=== PATIENT | male | born 1975 | race Caucasian/White ===

== ENCOUNTER 2018-05-12 13:32 | Emergency (ER) | payer BC, SELFPAY ==
[2018-05-12 13:33] VITALS: BP 165/106; PULSE 108; RESP 16; TEMP 36.6; O2SAT 95; BMI 22.2
--- NOTE | 2018-05-12 13:45 | ED.RN ---
PT REQUESTING TO LEAVE. I AM OK I CANT AFFORD THIS I AM ABOUT TO LOSE MY HOUSE PATIENT INFORMED OF THE SERIOUSNESS OF HIS VISIT. ENCOURAGED PATIENT TO STAY AND BE EVALUATED BY A PHYSICIAN. PT STILL REQUESTING TO LEAVE. EXPLAINED TO PATIENT THAT THE HOSPITAL HAS PAYMENT PROGRAMS. PT SIGNED AMA FORM. PT INFORMED THAT HE COULD POTENTIAL IF NOT EVALUATED BY A PHYSICIAN. PT LEFT WITHOUT BEING SEEN.
== END 2018-05-12 13:44 ==
LOC: ED 13:45
PROVIDERS: Emergency Provider Emergency Medicine; Family Provider Family Medicine; PCP Family Medicine
DX: R55 Syncope and collapse (principal)

== ENCOUNTER → 2018-09-22 06:55 | Outpatient (CLI) | payer MEDICAID, SELFPAY ==
--- NOTE | 2018-09-22 10:34 | NEURO_ITS ---
NCS and/or EMG Patient Report Ordering Doctor: Luci Daly DATE OF SERVICE: 09/22/18 Is a left upper extremity nerve conduction study performed on this 43-year-old male who in 2013 suffered a laceration in his lateral left arm but recovered. Over the past year he has experienced left elbow pain when grasping progressiv joby worse over the past 6 months. He denies paresthesias in his hands or fingers. Left upper extremity sensory and motor nerve conduction studies performed. There is mild prolongation of the median motor and sensory distal latencies with preservation of amplitude and conduction velocities. The ulnar motor and sensory and radial sensory responses are normal. The median and ulnar F-wave latencies are normal. 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 There is no evidence of ulnar or radial neuropathy. EMG testing was deferred.
== END ==
DX: M79.602 Pain in left arm (principal)
CPT/HCPCS: 95910

== ENCOUNTER → 2019-02-02 08:28 | Outpatient (CLI) | payer MEDICAID, SELFPAY ==
[2019-02-02 08:22] VITALS: BMI 22.2
--- NOTE | 2019-02-02 08:30 | RAD_ITS ---
STUDY: X-RAY - LEFT RADIUS AND ULNA REASON FOR EXAM: Arm pain without injury. TECHNIQUE: 2 view(s) of the forearm. COMPARISON: Radiographs of the left wrist 02/18/2014. FINDINGS: There is a very small calcification or residual foreign body at the dorsal radial aspect of the distal ulnar diaphysis. Normal visualized radius. Normal visualized ulna. RAD/Forearm 2 Views IMPRESSION: Very small calcification or residual foreign body at the dorsal radial aspect of the distal ulnar diaphysis. Electronically Signed: Trung Van MD at 14:27 EDT Tel , Service support ,
== END ==
PROVIDERS: Referring Provider Orthopaedic Surgery; Visit Provider Orthopaedic Surgery
DX: M79.602 Pain in left arm (principal)
CPT/HCPCS: 73090

== ENCOUNTER 2021-06-20 12:46 | Emergency (ER) | payer MEDICAID, SELFPAY ==
[2021-06-20] VITALS (12 sets, daily range): BP systolic 135–166; BP diastolic 84–101; PULSE 88–90; RESP 12–17; TEMP 35.3; O2SAT 98–99; BMI 23.7
--- NOTE | 2021-06-20 13:02 | CT_ITS ---
STUDY: CTA NECK WITH CONTRAST REASON FOR EXAM: Male, 45 years old. Attempted hanging RADIATION DOSAGE (If Supplied By Facility): CTDIvol = ( 21.37 ) mGy, DLP = ( 628.88 ) mGycm TECHNIQUE: CT angiography with multi-detector data acquisition was performed from the aortic arch to the skull base following intravenous administration of IV 100mL Isovue-370. MIP images were reconstructed from the axial data set. Post-processing of the angiographic images was performed, with multiplanar reformation and 3D reconstruction. Individualized dose optimization techniques were used for this CT. COMPARISON: None. FINDINGS: AORTIC ARCH: Normal visualized aortic arch. Normal origins of the brachiocephalic, left common carotid, and left subclavian arteries. RIGHT CAROTID ARTERIES: Normal right common carotid artery (CCA). Normal right common carotid bulb. There is mild atherosclerotic plaque formation of the origin of the right internal carotid artery with less than 50% cross sectional diameter stenosis. Normal visualized cervical portion of the right internal carotid artery. Normal origin of the right external carotid artery (ECA). LEFT CAROTID ARTERIES: Normal left common carotid artery (CCA). Normal left common carotid bulb. There is mild atherosclerotic plaque formation of the origin of the left internal carotid artery with less than 50% cross sectional diameter stenosis. Normal visualized cervical portion of the left internal carotid artery. Normal origin of the left external carotid artery (ECA). VERTEBRAL ARTERIES: Normal bilateral vertebral arteries. CT/CTA Neck W/WO Contrast IMPRESSION: No significant abnormality is seen. Electronically Signed: Rajinder Spencer MD at 15:46 EST , Service support ,
--- NOTE | 2021-06-20 13:03 | EDS_ITS ---
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 Police received call from ex-girlfriend stating the patient was threatening suicide therefore they went to the patient's residence and found him hanging from a tree. Patient states that he was using a lasso. Patient had to be cut down from the tree. Patient admits to drinking alcohol today and states he was drinking vodka. He is not had prior attempts at self-harm. Patient has history of anxiety and hypertension. Denies any illicit drug use. Prior similar symptoms: No PFSH PFSH Medical History (Updated 06/20/21 @ 12:48 by Ning Hilario) Anxiety Hypertension Home Medications nitroglycerin 0.3 mg/hr transdermal 24 hour patch See Rx Instructions TOPICAL .COMPLEX #30 patch 02/08/19 [Rx Last Taken Unknown] buspirone 10 mg PO DAILY 06/20/21 [History Last Taken Unknown] losartan 100 mg PO DAILY 06/20/21 [History Last Taken Unknown] Allergy/AdvReac Type Severity Reaction Status Date / Time No Known Allergies Allergy Verified 06/20/21 12:47 Social History (Updated 02/02/19 @ 10:[address] Arlen Lima, DO) Smoking Status: Current every day smoker tobacco type: cigarettes ROS ROS ED Constitutional Constitutional ED: Reports systems reviewed and no addt'l complaints, except as documented; Denies body ache(s), change in weight or chills Eyes Eyes: Denies acute decrease in peripheral vision, change in vision, double vision or loss of vision ENT ENT ED: Reports none; Denies ear pain, lip swelling, loss taste/smell, neck pain, otalgia or sore throat Cardiovascular Cardiovascular: Reports none; Denies abdominal pain, chest pain with activity, leg edema, lightheadedness, palpitations, rapid heart rate or syncope Respiratory/Chest Respiratory/Chest: Reports none; Denies change in mental status, dry cough, dyspnea, hemoptysis, shortness of breath at rest or shortness of breath with ex ertion Gastrointestinal Gastrointestinal: Reports none; Denies abdominal pain, change in stool characte r, diarrhea, hematemesis, hematochezia, melena, rectal bleeding or vomiting Genitourinary Genitourinary ED: Reports none; Denies abdominal discomfort, anuria, dysuria, genital pain or polyuria Musculoskeletal Musculoskeletal: Reports none; Denies arthralgias, back pain, difficulty walking, extremity pain, muscle weakness or myalgias Integumentary Reports none; Denies abscess or rash Neurologic Neurologic: Reports none; Denies abnormal gait, confusion, focal weakness, frequent falls, headache(s), loss of vision, numbness, paresthesias, radicular pain, vertigo or weakness Psychiatric Psychiatric: Reports systems reviewed and no addt'l complaints, except as documented, none, suicidal ideation and suicidal thoughts; Denies behavioral changes, confusion, difficulty concentrating, hallucinations, tactile hallucinations or visual hallucinations Endocrine Endocrinology: Denies none, cold intolerance, excessive sweating, fatigue or heat intolerance Hematologic/Lymphatic Hematologic/Lymphatic: Reports none; Denies anemia, easy bleeding or easy bruising Allergic/Immunologic Allergic/Immunologic ED: Denies as per HPI, none, lip swelling, mouth swelling, throat swelling, tongue swelling or hives EXAM Physical Exam Const Vital Signs: 06/20/21 12:50 06/20/21 14:03 06/20/21 15:13 Temperature 95.6 F L Temperature Source Oral Pulse Rate 90 Respiratory Rate 16 16 16 Blood Pressure 166/101 H Blood Pressure Mean 122 Pulse Ox 98 Oxygen Delivery Method Room Air 06/20/21 16:01 06/20/21 16:33 Temperature Temperature Source Pulse Rate 90 Respiratory Rate 16 12 Blood Pressure 140/89 H Blood Pressure Mean 106 Pulse Ox 99 Oxygen Delivery Method Room Air Positive well nourished and well developed General Appearance ED: well developed and NAD HEENT Reports TM's clear and moist mucous membranes HEENT Narrative: No tenderness over the larynx on exam. No ligature jo noted on exam. He does have an area of linear firmness and induration to the left side of the neck that is essentially nontender. No voice hoarseness noted. normocephalic and atraumatic; Negative for trauma or tenderness Tympanic Membrane ED: Yes TM's clear Eyes PERRL and EOMs intact bilaterally General Eye ED: Negative for pale conjunctiva or scleral icterus Neck no lymphadenopathy, supple and no JVD General: Negative for tenderness Chest Wall inspection of chest normal and palpation of chest normal Chest: Negative for tenderness Resp normal respiratory effort and clear to auscultation bilaterally Effort and Inspection: Negative for respiratory distress or pain with movement Auscultation: Negative for rhonchi, wheezes or diminished lung sounds Cardio regular rate, regular rhythm, S1 normal heart sound, S2 normal heart sound and no murmurs Peripheral Pulses: pulses 2+ throughout GI normal to inspection, nondistended, normoactive bowel sounds, soft to palpation, non-tender, non-distended and no masses Back/Spine no CVA tenderness and no thoracic nor lumbar tenderness Extremity normal to inspection General Extremety ED: Negative for edema General Extremity: Negative for edema Neuro oriented x3, CN's II-XII intact bilaterally, no sensory deficits noted and gait normal Sensorium / Orientation: awake, alert, oriented to person, oriented to place and oriented to time Motor Exam: strength 5/5 throughout and strength abnormal Psych mental status grossly normal Skin no rashes or lesions noted and no wounds MDM MDM MDM Narrative Medical decision making narrative: IV line established on arrival. Patient was uncooperative and wanted to leave the department while clearly intoxicated. Patient was medicated with Ativan as well as Haldol so that we could obtain the proper imaging and care for the patient. CTA of the neck was obtained which was essentially unremarkable. Patient's COVID-19 test came back positive however he is a poor historian and had denied any illness recently. A PCR was sent. Alcohol level was quite elevated at 342 and he will need to be evaluated by crisis once his alcohol normalizes. Care of patient turned over to evening physician awaiting evaluation by crisis and he will require transfer to psychiatric facility for further stabilization of his suicidal ideation. Lab Data Attestation: I reviewed the patient's lab results. Labs: Laboratory Results - last 24 hr 06/20/21 06/20/21 06/20/21 13:02 13:02 13:02 WBC 7.2 RBC 5.09 Hgb 16.0 Hct 45.9 MCV 90.2 MCH 31.4 MCHC 34.9 RDW Std Deviation 39.0 RDW Coeff of Niesha 11.9 Plt Count 201 MPV 9.3 Immature Gran % (Auto) 0.100 Neut % (Auto) 48.1 Lymph % (Auto) 35.3 [place] % (Auto) 14.4 H Eos % (Auto) 1.0 Baso % (Auto) 1.1 H Absolute Neuts (auto) 3.5 Absolute Lymphs (auto) 2.54 Nucleated RBC % 0 Sodium 138 Potassium 3.3 L Chloride 105 Carbon Dioxide 23.0 Anion Gap 10 BUN 10 Creatinine 1.00 Estim Creat Clear Calc 103.20 Est GFR (MDRD) Af Amer 103 Est GFR (MDRD) Non-Af 85 BUN/Creatinine Ratio 10.1 Glucose 107 H Calcium 9.4 Urine Opiates Screen Urine Methadone Screen Ur Barbiturates Screen Ur Phencyclidine Scrn Ur Amphetamines Screen U Methamphetamin-MDMA U Benzodiazepines Scrn Urine Cocaine Screen U Cannabinoids Screen Ur Drug Screen Comment Ethyl Alcohol 342.0 H* 06/20/21 14:19 WBC RBC Hgb Hct MCV MCH MCHC RDW Std Deviation RDW Coeff of Niesha Plt Count MPV Immature Gran % (Auto) Neut % (Auto) Lymph % (Auto) [place] % (Auto) Eos % (Auto) Baso % (Auto) Absolute Neuts (auto) Absolute Lymphs (auto) Nucleated RBC % Sodium Potassium Chloride Carbon Dioxide Anion Gap BUN Creatinine Estim Creat Clear Calc Est GFR (MDRD) Af Amer Est GFR (MDRD) Non-Af BUN/Creatinine Ratio Glucose Calcium Urine Opiates Screen NEGATIVE Urine Methadone Screen NEGATIVE Ur Barbiturates Screen NEGATIVE Ur Phencyclidine Scrn NEGATIVE Ur Amphetamines Screen NEGATIVE U Methamphetamin-MDMA NEGATIVE U Benzodiazepines Scrn NEGATIVE Urine Cocaine Screen NEGATIVE U Cannabinoids Screen NEGATIVE Ur Drug Screen Comment Ethyl Alcohol Radiography Diagnostic Testing: Clinical Impression(s) from Imaging Studies Neck CTA 06/20/21 13:02 IMPRESSION: No significant abnormality is seen. Electronically Signed: Rajinder Spencer MD at 15:46 EST , Service support , Discharge Plan Triage Chief Complaint: Suicidal ED Provider: Khadra Sanz Dx/Rx/DC Orders Prescriptions: No Action buspirone 10 mg tablet 10 mg PO DAILY RF: 0 losartan 100 mg tablet 100 mg PO DAILY RF: 0 Nitro-Dur 0.3 mg/hr patch 24 hour See Rx Instructions TOPICAL .COMPLEX Qty: 30 RF: 0 [facility]
--- NOTE | 2021-06-20 13:10 | NURSING ---
CALLED [facility] FOR MED LIST. LEFT MESSAGE
[2021-06-20 13:11] LABS: Absolute Lymphocyte Count 2.54 X10^3/uL (0.83-4.51); Absolute Neutrophil Count 3.5 X10^3/uL (2.0-7.7); Basophil# 0.08 X10^3/uL; Basophil% 1.1 % (0-1); Eosinophil# 0.07 X10^3/uL; Hematocrit 45.9 % (40-54); Lymphocyte # 2.54 X10^3/ul (0.83-4.51); Lymphocyte % 35.3 % (19-41); Mean Corp Hgb Conc 34.9 g/dL (32-36); Mean Corpuscular Hgb 31.4 pg (27.0-32.0); Mean Corpuscular Volume 90.2 fL (80-94); Mean Platelet Vol. 9.3 fl (6.2-12.0); Monocyte# 1.04 X10^3/uL; Monocyte% 14.4 % (0-10); NRBC Flagged by Analyzer 0 % (0-5); Neutrophil # 3.46 X10^3/uL (2.7-7.7); Neutrophil % 48.1 % (47-70); Platelet Count 201 K/mm3 (150-450); RBC Distribution Width CV 11.9 % (11.6-14.6); Red Blood Count 5.09 M/mm3 (4.6-6.2); White Blood Count 7.2 K/mm3 (4.4-11.0)
[2021-06-20 13:22] LABS: Anion Gap 10 (5-15); BUN 10 mg/dL (7-18); BUN/Creat Ratio 10.1 RATIO (10-20); Calcium,Total 9.4 mg/dL (8.5-10.1); Chloride 105 mmol/L (98-107); EST Glomerular Filtration Rate 85 mL/min (>60); Est Glom Filt Rate - Afr Amer 103 mL/min (>60); Glucose 107 mg/dL (74-106); Potassium 3.3 mmol/L (3.5-5.1); Sodium Level 138 mmol/L (136-145)
[2021-06-20] MEDS: Haloperidol Lactate 5 MG/ML Vial 10 MG IM (14:16)
[2021-06-20] MEDS: LORazepam 2 MG/ML Syringe IM (14:16)
[2021-06-20 14:41] LABS: Amphetamine Urine VISTA NEGATIVE (<1000 ng/mL); Barbiturate Urine VISTA NEGATIVE (< 200 ng/mL); Benzodiazepine Urine VISTA NEGATIVE (< 200 ng/mL); Cocaine Urine VISTA NEGATIVE (< 300 ng/mL); Ecstacy Urine VISTA NEGATIVE (< 500 ng/mL); Methadone Urine VISTA NEGATIVE (< 300 ng/mL); PCP Urine VISTA NEGATIVE (< 25 ng/mL); THC Urine VISTA NEGATIVE (< 50 ng/mL); Vista UDS pH Range 6
[2021-06-20] MEDS: Ziprasidone IM 20 MG/ML VIAL IM (15:32)
--- NOTE | 2021-06-20 15:40 | CM.ED ---
SOCIAL WORK Patient presents [place] S[place]pped by police. Patient attempted to end his life by hanging. Patient intoxicated. Patient reports no insurance. Crisis to evaluate for placement once medically cleared. Denae Torres, CLERK MANAGER, ELECTRICAL ACCESSORIES ASSEMBLER
--- NOTE | 2021-06-20 16:02 | ED.RN ---
VISITOR MIHAI MAY STOPPED BY TO VISIT WITH PT. PT SLEEPING. PT REFERS TO MIHAI HIS DAD, THOUGH NOT BIOLOGICAL IS A FATHER FIGURE TO PTKathy HOLM PHONE NUMBER [phone].
[2021-06-21] VITALS (8 sets, daily range): BP systolic 128–156; BP diastolic 58–100; PULSE 64–104; RESP 15–18; O2SAT 94–99
--- NOTE | 2021-06-21 01:48 | ED.RN ---
crisis called to see patient they will be in to see patient
[2021-06-21] MEDS: guaiFENesin/Codeine 5 ML UDC 10 ML PO (05:26)
--- NOTE | 2021-06-21 05:27 | ED.RN ---
PT showing some shakes to his hands. Pt states he's anxious as he hasn't has his meds. PT does not know the name of his medications, he takes an anxiety three times a day and a blood pressure pill once a day. I asked PT if he wanted some meds for his anxiety, he declined. Offered beverage and snack/food, declined. Offered TV, declined. Sitter at bedside. Pending acceptance to [facility].
--- NOTE | 2021-06-21 10:32 | CM.ED ---
YOAN Note Referral Source: ED SW Referral Reason: Placement YOAN called Sofi at [facility]. Patient's tested covid negative with more accurate test. Sofi said that patient is pending at [facility] on single case contract. Sofi will continue to update staff and this business writer. YOAN updated chargeback analyst, Jane HUSSEIN
[2021-06-21] MEDS: busPIRone 5 MG Tablet 10 MG PO (10:48)
[2021-06-21] MEDS: Losartan Potassium 100 MG Tablet PO (10:48)
--- NOTE | 2021-06-21 11:32 | ED.RN ---
Spoke with daughter- Fatoumata, she is aware of patient and pending transfer to psychiatric facility. Patient was ok with speaking with her and giving her updates.
--- NOTE | 2021-06-21 12:17 | NURSING ---
CALLED [facility], ETA IS 30 MIN. TALKED TO BERNARDINO
--- NOTE | 2021-06-21 12:41 | ED.RN ---
[facility] given to [facility], pt ate lunch prior to transport.
--- NOTE | 2021-06-21 16:38 | CM.ED ---
YOAN Note: Patient was accepted by [facility] on a single case admission. Accepting MD is Dr. Gardner. Patient is going to [facility]. RN to RN is [phone] and request [facility]. SW updated RN. RN advised patient had questions regarding finances. SW advised that patient is going to treatment at [facility]. SW advised that the county has completed a single case agreement but may ask for him to complete a medicaid application to ensure ongoing care. Patient verbalized understanding. No other questions or concerns voiced. Sofía from Crisis called. She was unable to get ambulance scheduled. She asked that [facility] get ambulance scheduled and send bill to Megan Lorenz at [facility]. SW asked Елена to arrange ambulance for patient. [facility] got [facility] to provide transport. Sofía from [facility] called and inquired which ambulance company provided transportation and she was updated that it was [facility]. No further needs at this time. Plan: [facility] Irma HUSSEIN
== END 2021-06-21 12:54 ==
PROVIDERS: Emergency Medicine; Emergency Provider Emergency Medicine
DX: T14.91XA Suicide attempt, initial encounter (principal); X83.8XXA Intentional self-harm by other specified means, initial encounter; Y93.9 Activity, unspecified; Y92.89 Other specified places as the place of occurrence of the external cause; Y99.8 Other external cause status; F17.210 Nicotine dependence, cigarettes, uncomplicated; F41.9 Anxiety disorder, unspecified; I10 Essential (primary) hypertension; Z79.899 Other long term (current) drug therapy
CPT/HCPCS: 70498; 80048; 80307; 82077; 85025; 87426; 87635; 96372; 99285; Q9967; U0005; A4216; J3486; U0003

== ENCOUNTER → 2023-02-21 | Outpatient (CLI) | payer MEDICAID, SELFPAY ==
--- NOTE | 2023-02-21 13:52 | RAD_ITS ---
INDICATION: PAIN -- -- OLD INJURY, HAVING INCREASING PAIN EXAMINATION/TECHNIQUE: X-RAY - RIGHT XR Shoulder Min 2 Views 4 VIEWS COMPARISON: None FINDINGS: BONES: No fracture demonstrated. Mild degenerative changes at the acromioclavicular joint. JOINTS: No dislocation. SOFT TISSUES: Unremarkable. RAD/Shoulder min 2 Views IMPRESSION: No evidence of fracture. Mild degenerative changes at the AC joint. Electronically Signed: Sheri Smith MD at 17:59 EDT ,
== END | disposition home or self-care (01) ==
LOC: RAD 13:50
PROVIDERS: Referring Provider Nurse Practitioner Family; Visit Provider Nurse Practitioner Family
DX: M25.511 Pain in right shoulder (principal)
CPT/HCPCS: 73030

== ENCOUNTER 2023-08-26 12:30 | Outpatient (RCR) | payer MEDICAID, SELFPAY ==
--- NOTE | 2023-07-30 17:28 | HP.PTEVAL2 ---
Patient's Visit Information Visit Information Visit Information: TORITO LEA III is a 48 year old M referred to Physical Therapy by Dr. Yonatan Villaseñor MD with a diagnosis of . Date of Evaluation: Physical Therapist: Samir Childers PT, Cert MDT, OCS Anticipated Interventions text: Thank you for the opportunity to evaluate your patient. For Medicare and Medicare HMO plans, please review the plan of care and approve it. It will need to be FAXED BACK to us at [phone] for Medicare purposes. For Medicare only, by signing this I certify the plan of care. Please let me know if there are questions or concerns regarding this plan of care. Physician Signature: Date:
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
--- NOTE | 2023-10-17 12:45 | HP.PTDCSUM ---
Discharge Summary D/C summary: It has been my pleasure to treat TORITO LEA III referred by Dr. Yonatan Villaseñor MD, with the diagnosis of PAIN IN RIGHT SHOULDER ,OTHER JOINT DISORDER,RIGHT SHOULDER for a total of 7 visit(s). Discharge Date: Please see the following information for a summary of their discharge status. Subjective Subjective: Dont much better ,pain increases with activity . Pain located lateral deltoid Pain Right Shoulder: Pain Intensity (Out of 10): 7 Overall Improvement % Improvement: 0 Objective Objective/Function: POSTURE: mild forward posture NEURO: denies paresthesia/tingling PALAPTION: unremarkable AROM: shoulder flexion 150 ,abduction 140 degrees , ER 90 degrees ,IR reach behind back L2 MMT: RTC infraspinatus 18.3 , supraspinatus 23.3 , anterior deltoid 19.2 pain CRVICAL ROM: flexion/rotation/lateral flexion min loss ,extension min loss Goals Goal 1:: Patient to be I with HEP Goal 2:: Patient to increase shoulder ROM symmetrical right > left to improve function with ADLS and job demands Goal 3:: Patient to improve quick dash by 5 points to improve QOL and function/ADL's Goal 4:: Patient to demonstrate 50% improvement with less pain and improved function with job demands Goal 5:: Patient to be able to perform job demands and housework tasks with min limitations Plan Plan: RTD -MAY NEED MRI PT INTERVENTIONS STRENGTHENING RTC/SCPULAR ,POSTURAL EX'S , ROM , AND MODALTIES D/C Information d/c sentence: If there are questions or concerns regarding this patient's physical therapy, please feel free to call me at [phone]. Thank you for the referral of this patient. Sincerely, Saimr Childers, PT, Cert MDT, OCS Balance/Gait/Functional tests Balance/Special Test Scores Quick DASH Score: 40.9075 Improvement % Improvement: 0
== END 2023-08-26 19:00 | disposition home or self-care (01) ==
LOC: PT 12:30
PROVIDERS: Referring Provider Orthopaedic Surgery Sports Medicine; Visit Provider Orthopaedic Surgery Sports Medicine
DX: M25.511 Pain in right shoulder (principal); M25.811 Other specified joint disorders, right shoulder
CPT/HCPCS: 97110; 97162; 97530

== ENCOUNTER → 2023-09-15 | Outpatient (CLI) | payer MEDICAID, SELFPAY ==
--- NOTE | 2023-09-15 07:34 | MRI_ITS ---
STUDY: MRI RIGHT SHOULDER REASON FOR EXAM: Male, 48 years old. Pain, rule out cuff tear. TECHNIQUE: Standardized fat and water weighted pulse sequences were obtained in all 3 orthogonal planes. COMPARISON: None. FINDINGS: There is mild supraspinatus tendinosis without a full-thickness tear. Normal infraspinatus tendon. There is moderate grade partial thickness articular surface tearing of the distal subscapularis tendon, allowing for medial dislocation of the long biceps tendon. Normal teres minor tendon. Normal supraspinatus muscle. Normal infraspinatus muscle. Normal subscapularis muscle. Normal teres minor muscle. There is a tiny glenohumeral joint effusion. There is enthesopathic subcortical cyst formation of the greater tuberosity of the humeral head. Intact biceps labral complex. Normal labrum. Normal capsulo-ligamentous complex. There is mild hypertrophic acromioclavicular arthrosis. There is a Type II morphology (curved), with a neutral orientation. There is no subacromial-subdeltoid bursal fluid. Normal visualized coracohumeral and coracoacromial ligaments. Normal quadrilateral space. Normal axillary space. Normal deltoid muscle. Normal trapezius muscle. MRI/Upper Ext Joint Only(Routine) IMPRESSION: Mild supraspinatus tendinosis without a full-thickness rotator cuff tear. Moderate grade partial thickness articular surface tearing of the distal subscapularis tendon, allowing for medial dislocation of the long biceps tendon. Tiny glenohumeral joint effusion. Mild hypertrophic acromioclavicular arthrosis. Electronically Signed: Milan Houston MD at 12:39 EDT ,
== END | disposition home or self-care (01) ==
PROVIDERS: Referring Provider Orthopaedic Surgery Sports Medicine; Visit Provider Orthopaedic Surgery Sports Medicine
DX: M25.811 Other specified joint disorders, right shoulder (principal); M25.511 Pain in right shoulder
CPT/HCPCS: 73221

== ENCOUNTER 2024-01-21 06:47 | Day surgery (SDC) | payer MEDICAID, SELFPAY ==
--- NOTE | 2024-01-09 08:48 | EKG12_ITS ---
Test Reason : PRE OP Blood Pressure : / mmHG Vent. Rate : 101 BPM Atrial Rate : 101 BPM P-R Int : 170 ms QRS Dur : 094 ms QT Int : 334 ms P-R-T Axes : 073 063 070 degrees QTc Int : 433 ms Sinus tachycardia Otherwise normal ECG Confirmed by NURA CUNNINGHAM, ITEZL ([id number]), video editor BERNARDINO SALGADO ([id number]) on 01/12/2024 10:08:17 AM Referred By: Yonatan Villaseñor Confirmed By:ITZEL LYMAN MD
[2024-01-09 10:40] LABS: Hematocrit 41.6 % (40-54); Hemoglobin 14.2 g/dL (13.0-16.5); Mean Corp Hgb Conc 34.1 g/dL (32-36); Mean Corpuscular Hgb 31.8 pg (27.0-32.0); Mean Corpuscular Volume 93.1 fL (80-94); Platelet Count 248 K/mm3 (150-450); RBC Distribution Width CV 12.5 % (11.6-14.6); RBC Distribution Width SD 42.9 fl (35.1-43.9); Red Blood Count 4.47 M/mm3 (4.6-6.2); White Blood Count 7.2 K/mm3 (4.4-11.0)
[2024-01-09 10:41] LABS: Partial Thromboplast Time 26.7 Seconds (24.1-36.2)
[2024-01-09 10:48] LABS: Prothrombin Time (Protime)PT. 13.3 SECONDS (11.7-14.9)
[2024-01-09 11:28] LABS: AST(SGOT) 202 U/L (15-37); Alanine Aminotransfer ALT/SGPT 141 U/L (16-61); Albumin, Serum 4.1 g/dL (3.2-5.0); Alkaline Phosphatase 53 U/L (45-117); Anion Gap 10 (5-15); BUN 9 mg/dL (7-18); BUN/Creat Ratio 6.9 RATIO (10-20); Bilirubin, Direct 0.22 mg/dL (0.00-0.30); Calcium,Total 9.7 mg/dL (8.5-10.1); Chloride 105 mmol/L (98-107); Creatinine, Serum 1.31 mg/dL (0.70-1.30); EST Glomerular Filtration Rate 61 mL/min (>60); Est Glom Filt Rate - Afr Amer 74 mL/min (>60); Globulin 4.5 g/dL (2.2-4.2); Glucose 76 mg/dL (74-106); Potassium 4.3 mmol/L (3.5-5.1); Protein, Total 8.6 g/dL (6.4-8.2); Sodium Level 137 mmol/L (136-145)
[2024-01-21] VITALS (9 sets, daily range): BP systolic 115–143; BP diastolic 76–95; PULSE 80–111; RESP 14–16; TEMP 36.3–36.9; O2SAT 93–97; BMI 23.2
[2024-01-21] MEDS: Lactated Ringers 1,000 ML 15 ML IV (07:24)
--- NOTE | 2024-01-21 08:22 | PRE.ANES_ITS ---
ASA Classification* ASA Classification ASA Classification: 2 Assessment & Plan Anesthesia* Anesthesia Assessment Anesthesia Assessment: Discussed sedation and/or anesthesia options, risks, benefits, and alternatives with patient/parents/legal guardian/POA. Questions invited. The patient/parents/legal guardian/POA seems to understand and agrees to proceed with anesthesia plan. Reviewed the physical assessment, medical history, allergy history and patient home medications list prior to surgery/procedure/anesthetic and documented any changes. Performed airway and anesthesia risk assessments. Anesthesia Type Anesthesia Type: General (With Shoulder Block for post op pain relief consented pre op) Anesthesia Focused Assessment* Temperature: 98.4 F Pulse Rate: 106 Blood Pressure: 142/95 Respiratory Rate: 16 Pulse Ox: 97 Airway Assessment Mouth opens: >3 cm Mallampati Score: II Focused Labs Anesthesia Preop lab: CBC WBC 7.2 K/mm3 (4.4-11.0) 01/09/24 09:09 RBC 4.47 M/mm3 (4.6-6.2) L 01/09/24 09:09 Hgb 14.2 g/dL (13.0-16.5) 01/09/24 09:09 Hct 41.6 % (40-54) 01/09/24 09:09 Plt Count 248 K/mm3 (150-450) 01/09/24 09:09 CHEMISTRY Potassium 4.3 mmol/L (3.5-5.1) 01/09/24 09:09 Sodium 137 mmol/L (136-145) 01/09/24 09:09 BUN 9 mg/dL (7-18) 01/09/24 09:09 Creatinine 1.31 mg/dL (0.70-1.30) H 01/09/24 09:09 Glucose 76 mg/dL (74-106) 01/09/24 09:09 COAG PT 13.3 SECONDS (11.7-14.9) 01/09/24 09:09 Pre-Assessment Diagnosis/Proposed Procedure Planned Operative Procedure(s): (R) right shoulder arthroscopy, subacromial decompression, rotator cuff repair, biceps tenodesis Anesthesia History 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 When Was Last Pacemaker Check QUESTION #4 FULL TEXT: You/Your Family Experience fever (hyperthermia) with Anesthesia Last Oral Intake Last Oral intake: Last Oral Intake NPO since 18:00 01/21/24 07:18 Meds taken in AM with sips of water? Meds patient instructed to take am of surgery PONV PONV - aviation safety officer: PONV - aviation safety officer Female No 01/07/24 09:05 HX of Motion Sickness No 01/07/24 09:05 HX of N/V After Surgery No 01/07/24 09:05 Non-Smoker No 01/07/24 09:05 Duration of Surgery greater Yes 01/07/24 09:05 than 60 minutes Number of Risk Factors 1 01/07/24 09:05 PONV Score Low Risk 01/07/24 09:05 Height & Weight Height & Weight: Anesthesia: Height & Weight Height 6 ft 1 in 01/21/24 07:18 Weight: 80 kg 01/21/24 07:18 Body Mass Index (BMI) 23.2 01/21/24 07:18 Respiratory Assessment Respiratory Assessment - aviation safety officer: Respiratory Tract Infection Hx - aviation safety officer Hx Respiratory Tract Infection No 01/07/24 09:05 STOP Sleep Apnea STOP Sleep Apnea - aviation safety officer: STOP Sleep Apnea - aviation safety officer Hx Hypertension Yes: CONTROLLED ON MED 01/07/24 09:05 Hx Sleep Apnea No 01/07/24 09:05 CPAP No 01/07/24 09:05 BIPAP No 01/07/24 09:05 Do you snore loudly (louder Yes 01/07/24 09:05 than talking or can be heard Do you often feel tired/ No 01/07/24 09:05 fatigued/ sleepy during daytime? Has anyone observed you stop Yes 01/07/24 09:05 breathing during sleep? STOP Results Positive 01/07/24 09:05 QUESTION #5 FULL TEXT : Do you snore loudly (louder than talking or can be heard through closed doors)? 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 Specify any problems Hx of Preganancy in last 3 N/A 01/07/24 09:05 Months Nurse Filling Out Transfusion VCHRISTIN 01/07/24 09:05 & Questions: Date: 01/07/24 01/07/24 09:05 Time: 09:01/07/24 09:05 Patient unable to answer at this time (ie. confused, unrespo /Reproduction History /Reproductive History - aviation safety officer: /Reproductive Hx- aviation safety officer Hx Now Gestational Age (in weeks): EDC: Hx Hx Para Hx Section SAB Active Medications Active Medications: Current Medications Generic Name Dose Route Start Last Admin Trade Name Freq PRN Reason Stop Dose Admin Cefazolin Sodium 2 gm/ Sodium 110 mls @ 150 mls/hr 01/21/24 09:10 Chloride IV 01/21/24 09:53 PREOP ONE Lactated Ringer's 1,000 mls @ 15 mls/hr 01/21/24 07:00 01/21/24 07:24 IV 15 mls/hr .Q48H LINDA Administration PFSH Medical History Wears glasses Depression Alcohol use Arthritis Back pain Injury of head and neck Gastric reflux Chewing tobacco dependence Smoker History of edema History of stress test History of heart attack History of irregular heartbeat Unspecified rotator cuff tear or rupture of right shoulder, not specified as traumatic Impingement of right shoulder Right shoulder pain Anxiety Hypertension Home Medications ?Medication ?Instructions ?Recorded ?Last Taken ?Type losartan 100 mg tablet 100 mg PO DAILY 06/20/21 01/20/24 History amlodipine 10 mg tablet 10 mg PO DAILY 01/07/24 01/20/24 History omeprazole 20 mg tablet,delayed 20 mg PO DAILY PRN GERD 01/07/24 01/20/24 History release Allergy/AdvReac Type Severity Reaction Status Date / Time No Known Allergies Allergy Verified 01/21/24 07:16 Surgical History Hx of hernia repair History of nasal surgery H/O left wrist surgery Social History household members: significant other Smoking Status: Current every day smoker tobacco type: cigarettes and smokeless tobacco alcohol intake: current Review of Systems (Anesthesia) ROS Narrative System reviewed and no additional complaints, except as documented.
--- NOTE | 2024-01-21 08:34 | PCM.HP.STD ---
HPI - General HPI Narrative TORITO LEA, is a 48 M who presents for right shoulder arthroscopy subacromial decompression rotator cuff repair (subscapularis) and biceps tenodesis. No changes to history and physical exam. Right shoulder marked. Risks alternatives benefits discussed as well as postoperative instructions and narcotic counseling. Patient understands wishes to proceed plan for preoperative block no further questions or concerns. R#: [id number] Acct: [id number] Name: TORITO LEA III Rep #: [id number] : 1975 Provider: Dr. Yonatan Villaseñor MD Age/Sex: 48/M Location: [facility] [email or web address] Status: Signed Intake Vital Signs 07/22/2410:03 09/18/2413:35 Height 6 ft 1 in 6 ft 1 in Weight: 175 lb 6 oz BMI 23.1 Intake Visit Reasons: right shoulder Accompanied by: Self Is patient in pain?: Yes Pain scale (1-10): 7 Allergies No Known Allergies Allergy (Verified 09/19/23 14:35) Medications losartan 100 mg tablet 100 mg PO DAILY 06/20/21 [History Confirmed 09/19/23] PFSH Medical History Anxiety Hypertension Impingement of right shoulder Right shoulder pain Unspecified rotator cuff tear or rupture of right shoulder, not specified as traumatic Surgical History H/O left wrist surgery Social History household members: significant other Smoking Status: Current every day smoker tobacco type: cigarettes alcohol intake: current HPI right shoulder Details: This documentation accurately reflects the service provided and the decisions made by me, Dr. Yonatan Villaseñor MD 09/19/23 1127. Part of today?s visit was documented by [ ], acting as scribe. TORITO LEA is a 48 year old M here today for FU right shoulder MRI. Ortho Exam General General: Yes no acute distress Neurologic: Yes alert and Yes oriented x3 Psychologic: Yes reasonable and appropriate Coding Level of Care Code Off vis,est,level 4 Diagnoses Unspecified rotator cuff tear or rupture of right shoulder, not specified as traumatic M75.101 Impingement of right shoulder M25.811 Right shoulder pain M25.511 Assessment and Plan Assessment and Plan (1) Unspecified rotator cuff tear or rupture of right shoulder, not specified as traumatic: Status: Acute Plan: 48-year-old man with MRI evidence of subscapularis tear with medial subluxation of the biceps tendon as well as impingement syndrome and arthrosis of the AC joint as well as tendinosis of the supraspinatus tendon. We discussed the pros and cons risk and benefits of different forms of treatment including but not limited to rest ice anti-inflammatories injections physical therapy and surgery. Surgical management of this in my hands would be in the form of a right shoulder arthroscopy subacromial decompression rotator cuff repair (subscapularis) and biceps tenodesis. NO pain at ACJ and neg cross body test. Smoker so increased all risks including infection and tendon not healing. Pros and cons risks and benefits were discussed with the patient including but not limited to infection, pain, stiffness, bleeding, damage to surrounding structures, neurovascular injury, recurrence or retear, failure or wear of hardware or fixation, instability, fracture, deep vein thrombosis and pulmonary embolism, anesthetic risks, , patient dissatisfaction, need for further surgery and other risks. Patient understood and wished to proceed with surgery, and signed the informed consent documentation. (2) Impingement of right shoulder: Status: Acute (3) Right shoulder pain: Status: Acute [facility] Medical History Wears glasses Depression Alcohol use Arthritis Back pain Injury of head and neck Gastric reflux Chewing tobacco dependence Smoker History of edema History of stress test History of heart attack History of irregular heartbeat Unspecified rotator cuff tear or rupture of right shoulder, not specified as traumatic Impingement of right shoulder Right shoulder pain Anxiety Hypertension Home Medications ?Medication ?Instructions ?Recorded ?Last Taken ?Type losartan 100 mg tablet 100 mg PO DAILY 06/20/21 01/20/24 History amlodipine 10 mg tablet 10 mg PO DAILY 01/07/24 01/20/24 History omeprazole 20 mg tablet,delayed 20 mg PO DAILY PRN GERD 01/07/24 01/20/24 History release Allergy/AdvReac Type Severity Reaction Status Date / Time No Known Allergies Allergy Verified 01/21/24 07:16 Surgical History Hx of hernia repair History of nasal surgery H/O left wrist surgery Social History household members: significant other Smoking Status: Current every day smoker tobacco type: cigarettes and smokeless tobacco alcohol intake: current Vital Signs Vital Signs Vital Signs: 01/21/24 07:18 01/21/24 07:18 01/21/24 08:22 Temperature 98.4 F 98.4 F Temperature Source Temporal Pulse Rate 106 H 106 H Respiratory Rate 16 16 Respiratory Pattern Normal Blood Pressure 142/95 H 142/95 H Blood Pressure Mean 110 Blood Pressure Source Monitor Blood Pressure Position Sitting Blood Pressure Location Left Arm Pulse Ox 97 97 Oxygen Delivery Method Room Air Weight Weight: 176 lb 5.917 oz Body Mass Index (BMI) 23.2 Results Lab / Micro Data 01/09/24 09:09 01/09/24 09:09
[2024-01-21] MEDS: Epinephrine (1 mg/ml) 1 MG/ML VIAL (08:49)
[2024-01-21] MEDS: Cefazolin 2 GM in 0.9% Normal Saline (100mL Bag) 100 ML IV (08:49)
--- NOTE | 2024-01-21 09:10 | TESH_PTH ---
PATIENT: TORITO LEA III LOC: [facility] [place] U#:[id number] AGE/SX: 48/M ROOM: RE01/21/[address]: Dr. Yonatan Villaseñor MD : 1975 BED: DIS: 01/21/2024 SPEC #: [id number] RECD: 01/21/24 13:10 STATUS: JEANMARIE LUKE #: [id number] ANIL: 01/21/24 09:[address]: Yonatan Villaseñor DEPT: SURGICAL PATHOLOGY RECD BY: Sakina Martínez ENTERED: 01/21/24 13:44 SP TYPE: TENDON OTHR DR: Dr. Erasmo Carty MD [facility] Tissues: Tendon and tendon sheath, NOS Procedures: Surgery Specimen Level III HEADER OPERATION: Right shoulder arthroplasty, subacromial decompression PRE-OP DIAGNOSIS: Unspecified rotator cuff tear or rupture of right shoulder, not specified as traumatic TISSUE SUBMITTED: Right biceps tendon MICROSCOPIC DIAGNOSIS Right biceps tendon, excision: A piece of dense fibroconnective tissue with reactive changes. / 01/22/2024 MICROSCOPIC DESCRIPTION Slides are reviewed. GROSS DESCRIPTION Received in fixative is one container labeled with the patient's name and designated Right bicep tendon. The specimen consists of a piece of garnett indurated tissue measuring 7.7 x 1.2 x 0.5cm. Forming Machine Adjuster sections are submitted in one cassette. / 01/21/2024 TC:5 CPT:85658
--- NOTE | 2024-01-21 10:06 | OP.PCM_ITS ---
Problems Associated Problem List Diagnoses (1) Impingement of right shoulder: (2) Right shoulder pain: (3) Unspecified rotator cuff tear or rupture of right shoulder, not specified as traumatic: Report of Operation Pre-Operative Diagnosis: Right shoulder impingement syndrome subscapularis tear with subluxation of the biceps Post-Operative Diagnosis: Same Surgery/Procedure Performed:: Right shoulder arthroscopy, subacromial decompression, debridement, repair subscapularis tendon, separate open incision biceps tenodesis Surgeon: Yonatan Villaseñor Type of Anesthesia: Block,Regional and General Anesthesiologist: Erasmo Carty Estimated Blood Loss (mL): 20 Description of Procedure: Patient brought to the operating room theater. Placed supine on the table. General anesthesia induced. Patient transferred right side up lateral decubitus beanbag positioner. Axillary roll used. All bony prominences padded. SCDs on the legs. Upper extremity prepped and draped in the usual sterile fashion with chlorhexidine-based prep solution allowing over 3 minutes drying time prior to draping. 10 pounds of inline traction with the arm and 35 degrees of abduction was used. Preoperative timeout performed to confirm the site patient and the surgery. Began by inserting the arthroscope into the intra-articular portion of the shoulder through a standard posterior arthroscopy portal. Did a full diagnostic arthroscopy. I established an anterior portal through the rotator interval using spinal needle inside out localization I placed this Arthrex 7 x 7 mm cannula. Cartilage on the glenoid and humeral head appeared normal very slight grade 1 changes on the glenoid only. Undersurface the supraspinatus and infrasp inatus tendon appeared to have very very minor fraying but a good insertion point overall. Biceps was hypertrophic medially subluxed underneath the superior border subscapularis tear. Gutters entered no loose body of the inferior axillary recess. Otherwise the labrum appeared normal for age. Some minor synovitis in the rotator interval. I performed a biceps tenotomy using the ablator device. This was planned for later biceps tenodesis. I cleaned up the stump again debrided this. Identified the subscapularis superior border tear took arthroscopy pictures of this there is some moderate tendinosis as well. I then placed 2 Arthrex #2 fiber link sutures in the superior aspect of the subscapularis. I then used the power pick instrument to trephinate multiple holes for a bony healing. I then selected my site for the repair suture at the subscapularis insertion superior border. I used the tap down to appropriate depth followed by a 4.75 mm Arthrex bio composite swivel lock anchor using those 2 sutures from the fiber link repair stitches. Inserted this down to appropriate depth and cut the suture short and removed the stay suture. Arthroscopy pictures taken and saved throughout the case. I then inserted the arthroscope into the subacromial space to use an accessory lateral portal. I performed a bursectomy for a minor amount of bursitis to the lateral gutters. There was very very slight downsloping the anterolateral leading edge of the acromion so I performed a subacromial decompression to flat margins for about 1 to 2 mm using a high-speed reinaldo instrument. Probed the superior aspect of the rotator cuff again no tears were seen. I then turned my attention to the open part of the procedure. I made a small 1 inch longitudinal incision centered over the proximal anteromedial aspect of the upper border of the humerus overlying the long head of the biceps tendon. I carried the dissection down through skin and subcutaneous tissue achieved meticulous hemostasis. I developed the fascia in line with the skin incision. Identified the long head of the biceps tendon just distal to the pectoralis major insertion. I deliver the biceps through the incision. I placed an Allis clamp on the tip of the biceps. I used the locking loop configuration for the biceps Arthrex tension tight button. I used luggage tag configuration suture followed by passing the stitch just distal to that more towards the muscular tendinous junction from anterior aspect of the tendon down to the deep portion of the tendon. I then drilled a unicortical hole in the mid aspect of the humerus. I cleared away any irrigated bone dust. I then passed this free end of the suture through the Arthrex biceps button. Shortened the tendon. I passed the button into the drill hole flipped this and tensioned on the other the free end of the suture deliver the biceps down to the repair site this was quite solid very strong repair. I cut the suture short. I thoroughly irrigated the wound. Subcutaneous tissue closed with 2-0 Vicryl suture and skin with 3-0 Monocryl. Skin cleaned with wet and dry dressing followed by application of Steri-Strips Adaptic 4 x 4 gauze ABD dressing cloth tape and an abduction pillow sling for the upper extremity. Patient woken up from a general anesthetic transferred off the operating room table taken to postanesthetic care unit in stable condition. all sponge needle instrument counts were correct no complications. CPT 69104?, 51275, 20199 Complications none Admit VTE Documentation VTE Present on Admission: No VTE Mechan Device Prophylaxis: SCD's VTE Pharm Prophylaxis ordered?: No Reason prophylaxis not ordered:: Treatment Not Indicated Procedures Musculoskeletal 20xxx-29xxx: Other Procedure See Report
--- NOTE | 2024-01-21 10:10 | PCM.POST.ANE ---
Anesthesia: Postop Eval I Current Vital Signs Temperature: 97.3 F Pulse Rate: 106 Blood Pressure: 140/82 Respiratory Rate: 14 Pulse Ox: 97 Oxygen Delivery Method: Room Air Assessment Airway patent: Yes Spontaneous unlabored respirations: Yes Mental status: Awake and Calm nausea: No Vomiting: No Anesthesia Complication: No Fluid Hydration Crystalloid volume administer (ml): 1,000 Total IV fluid infused: 1,000 Progress Note Anesthesia document: Postop Eval 1 completed: Yes
--- NOTE | 2024-01-21 10:15 | DCINST_ITS ---
Discharge Instructions Diet Discharge Diet: No restrictions Activity Lifting Restrictions: no lifting over 1 pound Additional Activity Instructions:: ok to remove sling 4x/day for hand wrist elbow rom and pendulums Dressing / Incision Call your doctor if your incision/area has: Continuous Slow Oozing, Sudden Increased Bleeding, Increased Pain/ Swelling, Increased Redness, Foul Smelling Discharge and Swelling at the incision site Change Dressing in: leave in place till F/U Cleanse incision/area with: Do not get Incision Wet Follow Up Care Please Follow Up With: Yonatan Villaseñor MD When: tomorrow or within 2 weeks Test Results: Test results from this visit will be discussed in further detail at your follow- up appointment, if applicable. Discharge Plan Admission Attending Provider: Yonatan Villaseñor [facility] Providers: Erasmo Carty Instructions Print Language: Urdu Discharge Orders/Prescriptions Prescriptions: New oxycodone-acetaminophen [Percocet] 5-325 mg tablet 1 tab PO Q4H MDD 6 PRN (Reason: pain) 5 Days Qty: 30 0RF No Action losartan 100 mg tablet 100 mg PO DAILY Patient Comments: take 1 tablet by mouth once daily amlodipine 10 mg tablet 10 mg PO DAILY omeprazole 20 mg tablet,delayed release (DR/EC) 20 mg PO DAILY PRN (Reason: GERD) Referrals / Follow Up: Yonatan Villaseñor MD [Med Staff - Active Staff] - [facility],Kayli Martinez [Primary Care Provider] - Disposition Disposition (needs filled in before D/C Order can be placed): Home, Self Care
--- NOTE | 2024-01-21 21:35 | POSTOPAN2_ITS ---
Anesthesia Postop Eval I Sum Postop Eval Completion status Anesthesia document: Postop Eval 1 completed: Yes Anesthesia Postop Eval I Summary Anesthesia Postop Eval I Summary: Anesthesia Postop Eval I: Assessment Summary Airway patent Yes 01/21/24 10:10 PRESS ROOM [email or web address] Spontaneous unlabored Yes 01/21/24 10:10 PRESS ROOM [email or web address] respirations Mental status Awake,Calm 01/21/24 10:10 PRESS ROOM [email or web address] nausea No 01/21/24 10:10 PRESS ROOM [email or web address] Vomiting No 01/21/24 10:10 PRESS ROOM [email or web address] Anesthesia Postop Eval I: Fluid Summary Crystalloid volume administer 1,000 01/21/24 10:10 PRESS ROOM [email or web address] (ml) Colloids volume administered ( ml) Blood Product volume administered (ml) Total IV fluid infused 1,000 01/21/24 10:10 PRESS ROOM [email or web address] Anesthesia Postop Eval I: Summary Notes Anesthesia Complication No 01/21/24 10:10 PRESS ROOM [email or web address] Anesthesia Complication Comment: Post-operative progress note Anesthesia: Postop Eval II Evaluation Mental status: Awake and Calm Pain Level: 1 nausea: No Vomiting: No Complications Anesthesia Complication: No
--- NOTE | 2024-01-21 21:35 | PCM.POSTANE2 ---
Anesthesia Postop Eval I Sum Postop Eval Completion status Anesthesia document: Postop Eval 1 completed: Yes Anesthesia Postop Eval I Summary Anesthesia Postop Eval I Summary: Anesthesia Postop Eval I: Assessment Summary Airway patent Yes 01/21/24 10:10 [email or web address] Spontaneous unlabored Yes 01/21/24 10:10 [email or web address] respirations Mental status Awake,Calm 01/21/24 10:10 [email or web address] nausea No 01/21/24 10:10 [email or web address] Vomiting No 01/21/24 10:10 [email or web address] Anesthesia Postop Eval I: Fluid Summary Crystalloid volume administer 1,000 01/21/24 10:10 [email or web address] (ml) Colloids volume administered ( ml) Blood Product volume administered (ml) Total IV fluid infused 1,000 01/21/24 10:10 [email or web address] Anesthesia Postop Eval I: Summary Notes Anesthesia Complication No 01/21/24 10:10 [email or web address] Anesthesia Complication Comment: Post-operative progress note Anesthesia: Postop Eval II Evaluation Mental status: Awake and Calm Pain Level: 1 nausea: No Vomiting: No Complications Anesthesia Complication: No
== END 2024-01-21 11:59 | disposition home or self-care (01) ==
LOC: SDC 06:48 → AC 06:49
PROVIDERS: Anesthesiology; Referring Provider Orthopaedic Surgery Sports Medicine; Visit Provider Orthopaedic Surgery Sports Medicine
PROC: (CPT 29805; principal; 2024-01-21 08:50)
DX: M75.101 Unspecified rotator cuff tear or rupture of right shoulder, not specified as traumatic (principal); M75.41 Impingement syndrome of right shoulder; F17.210 Nicotine dependence, cigarettes, uncomplicated; F17.220 Nicotine dependence, chewing tobacco, uncomplicated; I10 Essential (primary) hypertension; I25.2 Old myocardial infarction; K21.9 Gastro-esophageal reflux disease without esophagitis; Z79.899 Other long term (current) drug therapy
CPT/HCPCS: 29827; 23430; 29826; 64415; 01630; 36415; 80048; 80076; 85027; 85610; 85730; 88304; 93005; C1713; J7120; J2405

== ENCOUNTER 2024-03-23 10:00 | Outpatient (RCR) | payer MEDICAID, SELFPAY ==
--- NOTE | 2024-01-30 14:08 | HP.PTEVAL ---
Patient's Visit Information Visit Information Visit Information: TORITO LEA III is a 48 year old M referred to Physical Therapy by Dr. Yonatan Villaseñor MD with a diagnosis of R Sub scap repair and biceps tenodesis 01/21/24. Date of Evaluation: 01/30/24 Physical Therapist: David Mar, PT, ATC Visit Plan Frequency: 1x/Week Duration: 4-6 Weeks Plan: Begin with 4 weeks of PROM and AROM of R shoulder avoiding IR/ER. CP for pain. Progress to strengthening at 6 weeks Subjective Subjective: Pt reports he tore his R rotator cuff approximately 2 years ago. Pt reports he had a R rotator cuff repair 01/21/24. Pt reports he is feeling good today. Pt notes he wore a sling for 2 days, but became tired of wearing it and hasn't worn it since. Pt reports he feels like his shoulder is getting better. Pt reports he has minor sleep difficulty at this time because he likes to sleep on his R shoulder. Pt denies tingling or numbness in R UE at this time. Pt reports he has previously injured his R shoulder prior to this episode and rehabbed it on his own. 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 Pt is R hand dominant. 0/10 pain at rest, 8/10 at worst Pain R rot cuff: Pain Intensity (Out of 10): 0 Pain Intensity Range: 7 Objective Objective: Neuro: B UE sensation is WNL to light touch. Observation: Incisions are still covered. No signs of infection. ROM: L shoulder flex= 180, abd= 180, ER= 90, IR= WNL; R shoulder flex= 80, abd= 60, ER= 50, IR= Not tested MMT: L shoulder flex= 13, abd= 21, ER= 15, IR= 18 #F; R shoulder not tested Balance/Special Test Scores Quick DASH Score: 18.1800 Goals Goal 1:: Decrease R shoulder pain x 50% to aid with sleep Goal Time Frame: 4-6 Weeks Goal 2:: Increase R shoulder strength to 95% of L shoulder to aid with RTW without limitation Goal Time Frame: 4-6 Weeks Goal 3:: Increase R shoulder flex and abd ROM x 50 degrees to aid with overhead movement Goal Time Frame: 4-6 Weeks Goal 4:: I with HEP Goal Time Frame: 4-6 Weeks Rehabilitation Potential Physical Therapy Diagnosis: Pt has R shoulder pain, weakness, and limited ROM secondary to R shoulder shoulder Rehabilitation Potential: Good Anticipated Interventions Patient/Client Instruction: Educate patient on: Condition and Plan of Care For the Purpose of:: To improve self management Therapeutic Exercise to Include: Strength training, Endurance training, Flexibilty training, Passive ROM, Active ROM and Scapular Strength/Stabilization For the Purpose of:: To decrease pain, To increase ROM and To improve muscle performance and motor function Cryotherapy (ice pack, ice massage): Yes For the Purpose of:: To decrease pain Text: Thank you for the opportunity to evaluate your patient. For Medicare and Medicare HMO plans, please review the plan of care and approve it. It will need to be FAXED BACK to us at [phone] for Medicare purposes. For Medicare only, by signing this I certify the plan of care. Please let me know if there are questions or concerns regarding this plan of care. Physician Signature: Date:
--- NOTE | 2024-03-23 10:25 | HP.PTDCSUM ---
Discharge Summary D/C summary: It has been my pleasure to treat TORITO LEA III referred by Dr. Yonatan Villaseñor MD, with the diagnosis of R Sub scap repair and biceps tenodesis 01/21/24 for a total of 7 visit(s). Discharge Date: Please see the following information for a summary of their discharge status. Subjective Subjective: I am ready to be done Pain R rot cuff: Pain Intensity (Out of 10): 0 Overall Improvement % Improvement: 80 Objective Objective/Function: MMT: R shoulder flex= 24, abd= 18, IR= 29, ER= 26 #F ROM: flex= 115, abd= 135, ER= 60, IR= minimally limited R shoulder pain ranging from 0-3/10 Pt is I with HEP Goals Goal 1:: Decrease R shoulder pain x 50% to aid with sleep Goal Progress: Goal Met Goal 2:: Increase R shoulder strength to 95% of L shoulder to aid with RTW without limitation Goal Progress: Goal Met Goal 3:: Increase R shoulder flex and abd ROM x 50 degrees to aid with overhead movement Goal Progress: Goal Met Goal 4:: I with HEP Goal Progress: Goal Met Plan Plan: Discharge to HEP D/C Information d/c sentence: If there are questions or concerns regarding this patient's physical therapy, please feel free to call me at [phone]. Thank you for the referral of this patient. Sincerely, David Mar, PT, ATC Balance/Gait/Functional tests Balance/Special Test Scores Quick DASH Score: 2.2725 Improvement % Improvement: 80
== END 2024-03-23 19:00 | disposition home or self-care (01) ==
LOC: PT 10:00
PROVIDERS: Referring Provider Orthopaedic Surgery Sports Medicine; Visit Provider Orthopaedic Surgery Sports Medicine
DX: M75.101 Unspecified rotator cuff tear or rupture of right shoulder, not specified as traumatic (principal); M25.811 Other specified joint disorders, right shoulder
CPT/HCPCS: 97110; 97161; 97530

== ENCOUNTER → 2024-08-26 | Outpatient (CLI) | payer MEDICAID, SELFPAY ==
[2024-08-26 16:56] LABS: Absolute Lymphocyte Count 1.99 X10^3/uL (0.83-4.51); Absolute Neutrophil Count 3.8 X10^3/uL (2.0-7.7); Basophil# 0.07 X10^3/uL; Basophil% 1.1 % (0-1); Eosinophil# 0.04 X10^3/uL; Eosinophils% 0.6 % (0-5); Hemoglobin 12.1 g/dL (13.0-16.5); Lymphocyte # 1.99 X10^3/ul (0.83-4.51); Lymphocyte % 29.9 % (19-41); Mean Corp Hgb Conc 34.6 g/dL (32-36); Mean Corpuscular Hgb 32.4 pg (27.0-32.0); Mean Corpuscular Volume 93.6 fL (80-94); Mean Platelet Vol. 10.2 fl (6.2-12.0); Monocyte# 0.78 X10^3/uL; Monocyte% 11.7 % (0-10); NRBC Flagged by Analyzer 0 % (0-5); Neutrophil # 3.77 X10^3/uL (2.7-7.7); Neutrophil % 56.5 % (47-70); Platelet Count 193 K/mm3 (150-450); RBC Distribution Width CV 12.4 % (11.6-14.6); RBC Distribution Width SD 43.1 fl (35.1-43.9); Red Blood Count 3.74 M/mm3 (4.6-6.2); White Blood Count 6.7 K/mm3 (4.4-11.0)
[2024-08-26 17:15] LABS: Hemoglobin A1c 4.9 % (3.8-5.6)
[2024-08-26 17:24] LABS: ALB/GLOB Ratio 1.1 RATIO (0.9-2.4); AST(SGOT) 258 U/L (15-37); Alanine Aminotransfer ALT/SGPT 178 U/L (16-61); Albumin, Serum 4.5 g/dL (3.2-5.0); Alkaline Phosphatase 48 U/L (45-117); Anion Gap 9 (5-15); BUN 12 mg/dL (7-18); BUN/Creat Ratio 9.4 RATIO (10-20); Calcium,Total 9.3 mg/dL (8.5-10.1); Chloride 102 mmol/L (98-107); Cholesterol 198 mg/dL (200); Creatinine, Serum 1.28 mg/dL (0.70-1.30); EST Glomerular Filtration Rate 63 mL/min (>60); Est Glom Filt Rate - Afr Amer 76 mL/min (>60); Globulin 4.1 g/dL (2.2-4.2); Glucose 122 mg/dL (74-106); High Density Lipoprotein 83 mg/dL; Potassium 3.7 mmol/L (3.5-5.1); Protein, Total 8.6 g/dL (6.4-8.2); Sodium Level 138 mmol/L (136-145); Triglycerides 108 mg/dL; Very Low Density Lipoprotein 22 mg/dL (5-40)
== END | disposition home or self-care (01) ==
LOC: VSLAB 13:52
DX: I10 Essential (primary) hypertension (principal); E78.5 Hyperlipidemia, unspecified; Z13.1 Encounter for screening for diabetes mellitus
CPT/HCPCS: 36415; 80053; 80061; 83036; 84443; 85025

== ENCOUNTER → 2024-09-13 | Outpatient (CLI) | payer MEDICAID, SELFPAY ==
[2024-09-13 13:38] LABS: Ferritin 2257 ng/mL (37-417)
[2024-09-13 14:33] LABS: FOLATES,SERUM (FOLIC ACID) 5.64 ng/mL (4.60-34.80)
[2024-09-13 14:47] LABS: Iron 178 ug/dL (65-175); Iron Binding Capacity,Total 323 ug/dL (250-450); Iron Binding Capacity,Unsat 145 ug/dL (228-428)
== END | disposition home or self-care (01) ==
LOC: VSLAB 08:53
DX: D64.9 Anemia, unspecified (principal)
CPT/HCPCS: 36415; 82728; 82746; 83540; 83550

== ENCOUNTER → 2024-10-06 | Outpatient (CLI) | payer MEDICAID, SELFPAY ==
--- NOTE | 2024-10-06 09:15 | US_ITS ---
PROCEDURE: ABD LIMITED W/ ELASTOGRAPHY REASON FOR EXAM: ABNORMAL LEVELS OF OTHER SERUM ENZYMES COMPARISON: None. TECHNIQUE: Right upper quadrant abdominal ultrasound. [facility] ElastQ Imaging shear wave elastography for non-invasive assessment of liver tissue stiffness. [facility] EPIQ Elite. FINDINGS: LIVER: Size: Enlarged (hepatomegaly) Length: 17.3 cm Echotexture: Diffusely echogenic suggesting fatty infiltration Contour: Normal Lesions: None identified Elastography: EQI Med: 7.8 kPa EQI Med Myles: 1.6 m/s IQR/Med: 13.5 %* GALLBLADDER: Normal COMMON BILE DUCT: Normal 3 mm. PANCREAS: Normal Visualized portions of the right kidney are unremarkable. No right upper quadrant ascites. US/ABD Limited w/ Elastography IMPRESSION: [id number] HEPATIC FIBROSIS Reference Values: SRU <1.37 m/s (5.7kPa): No to mild fibrosis 1.37 m/s - 2.2 m/s: Moderate to severe fibrosis >2.2 m/s (15kPa): Significant fibrosis / cirrhosis METAVIR Score F2 or higher: 1.34 m/s (5.7kPa) F3 or higher: 1.55 m/s (7.3kPa) F4: 1.80 m/s (10kPa) * If the IQR/Med is >30%, the variance in the measurements is a large and the a ccuracy of the measurement may be in question. Reading Location: [place] [id number]
== END | disposition home or self-care (01) ==
LOC: US 09:13
DX: R74.8 Abnormal levels of other serum enzymes (principal)
CPT/HCPCS: 76705; 76981

== ENCOUNTER → 2025-01-06 | Outpatient (CLI) | payer MEDICAID, SELFPAY ==
[2025-01-06 12:23] LABS: Hematocrit 43.4 % (40-54); Hemoglobin 14.9 g/dL (13.0-16.5); Immature Granulocytes Count 0.030 X10^3/uL (0.0-0.0); Mean Corp Hgb Conc 34.3 g/dL (32-36); Mean Corpuscular Volume 90.6 fL (80-94); Mean Platelet Vol. 10.0 fl (6.2-12.0); NRBC Flagged by Analyzer 0 % (0-5); Platelet Count 271 K/mm3 (150-450); RBC Distribution Width CV 12.3 % (11.6-14.6); RBC Distribution Width SD 41.0 fl (35.1-43.9); Red Blood Count 4.79 M/mm3 (4.6-6.2); White Blood Count 6.8 K/mm3 (4.4-11.0)
[2025-01-06 12:58] LABS: AST(SGOT) 119 U/L (<=37); Alanine Aminotransfer ALT/SGPT 98 U/L (<=46); Albumin, Serum 5.1 g/dL (3.5-5.0); Alkaline Phosphatase 39 U/L (40-129); Anion Gap 14 (5-15); BUN 14 mg/dL (4-19); BUN/Creat Ratio 13.3 RATIO (10-20); Calcium,Total 10.4 mg/dL (7.6-11.0); Carbon Dioxide 22.0 mmol/L (21.0-32.0); Chloride 99 mmol/L (98-108); Ferritin 1534 ng/mL (37-417); Globulin 3.4 g/dL (2.2-4.2); Glucose 94 mg/dL (70-99); Iron 152 ug/dL (65-175); Iron Binding Capacity,Total 381 ug/dL (250-450); Iron Binding Capacity,Unsat 229 ug/dL (228-428); Potassium 4.0 mmol/L (3.3-5.1)
== END | disposition home or self-care (01) ==
LOC: VSLAB 08:26
DX: R77.8 Other specified abnormalities of plasma proteins (principal); I10 Essential (primary) hypertension
CPT/HCPCS: 36415; 80053; 82728; 83540; 83550; 85025